=== PATIENT | male | born 1955 | race Caucasian/White ===

== ENCOUNTER 2019-01-24 06:05 | Observation (INO) | payer BC ==
--- NOTE | 2019-01-23 11:39 | PDHPUP ---
History & Physical Update H&P update statement: This history and physical update is based on an assessment of the patient which was completed after admission or registration (within 24 hours), but prior to the surgery/procedure. H&P update: H&P reviewed & patient examined, no change in patient's condition since H&P completed
--- NOTE | 2019-01-24 05:57 | PDANEPAE ---
ANE History of Present Illness Thyroglossal cyst excision. ANE Past Medical History - Cardiovascular History Hx Hypertension: Yes Hx Arrhythmias: No Hx Chest Pain: No Hx Coronary Artery / Peripheral Vascular Disease: No Hx CHF / Valvular Disease: No Hx Palpitations: No - Pulmonary History Hx COPD: No Hx Asthma/Reactive Airway Disease: No Hx Recent Upper Respiratory Infection: No Hx Oxygen in Use at Home: No Hx Sleep Apnea: No Sleep Apnea Screening Result - Last Documented: Negative Pulmonary History Comment: CHILDHOOD ASTHMA - Neurologic History Hx Cerebrovascular Accident: No Hx Seizures: No Hx Dementia: No Neurologic History Comment: OCCAS OCULAR MIGRAINES - Endocrine History Hx Diabetes: No Hypothyroid: No Hyperthyroid: No Obesity: moderate Endocrine History Comment: DM II. LAST A1C 6.8 - Renal History Hx Renal Disorders: No - Liver History Hx Hepatic Disorders: No - Neurological & Psychiatric Hx Hx Neurological and Psychiatric Disorders: No - Cancer History Hx Cancer: No - Congenital Disorder History Hx Congenital Disorders: No - GI History GERD: no Hx Gastrointestinal Disorders: No - Other Health History Other Health History: NEG - Chronic Pain History Chronic Pain: Yes (SHOULDER PAIN AT NIGHT) - Surgical History Prior Surgeries: FINGER FX R HAND. CHATO TKA. CHATO SCOPES. L CARLOS. CHATO SHOULDER SPURS ANE Review of Systems Review of Systems: - Exercise capacity METS (RN): 5 METS ANE Patient History - Allergies Allergies/Adverse Reactions: mosquito spray Allergy (Uncoded 01/24/19 07:55) Rash - Home Medications Home Medications: Acetamn/Diphenhydramine 500/25 [Tylenol PM (*)] 1 each PO HS PRN 01/02/19 [Last Taken 11/22/18] Ascorbic Acid [Vitamin C 500 mg (*)] 500 mg PO DAILY 01/02/19 [Last Taken ] Cholecalciferol Vit D3 [Vitamin D3 (*)] 1,000 units PO DAILY 01/02/19 [Last Taken 01/14/19] Herbals/Supplements -Info Only 1 ea PO DAILY 01/02/19 [Last Taken 01/14/19] Lisinopril [Zestril 20 mg (*)] 20 mg PO DAILY 01/02/19 [Last Taken 01/24/19 04: 30] metFORMIN HCL [Glucophage 1000 mg] 1,000 mg PO BIDMEAL 01/02/19 [Last Taken 02/ 27/19 12:00] - Anes Hx Anes Hx: slow to awaken from anesthesia - Smoking Hx Smoking Status: Former smoker Marijuana use: No - Alcohol Use Alcohol Use: Rarely - Family Anes Hx Family Hx Anesthesia Complications: UNK ANE Labs/Vital Signs - Vital Signs Blood Pressure: 124/77 Heart Rate: 87 O2 Sat (%): 95 Height: 185.42 cm Weight: 119.295 kg ANE Physical Exam - Airway Neck exam: decreased ROM (extension is decreased.) Mallampati Score: Class 1 Mouth exam: dentures (upper) - Pulmonary Pulmonary: clear to auscultation - Cardiovascular Cardiovascular: regular rate and rhythym - ASA Status ASA Status: III ANE Anesthesia Plan Anesthesia Plan: general endotracheal anesthesia
[2019-01-24] MEDS ORDERED: ceFAZolin 2 GM/DEXTROSE 100 ML IV ONE (06:08)
[2019-01-24] MEDS ORDERED: LR 1,000 ML IV ONE (06:09)
[2019-01-24] MEDS ORDERED: LIDOCAINE 1% 2 ML INJ ID PRN (06:09)
[2019-01-24] MEDS ORDERED: LIDO/EPI 1% **Not for Epidural 20 ML MDV ONE (06:54)
[2019-01-24] MEDS ORDERED: MIDAZOLAM 2 MG/2 ML VIAL IVP ONE (07:07)
[2019-01-24] MEDS ORDERED: ROCURONIUM 50 MG/5 ML VIAL ONE (07:08)
[2019-01-24] MEDS ORDERED: REMIFENTANIL HCL 1 MG VIAL ONE ×2 (07:08→08:45)
[2019-01-24] MEDS ORDERED: PROPOFOL/EMULSION 500 MG/50 ML BOTTLE IV ONE ×2 (07:08→08:48)
[2019-01-24] MEDS ORDERED: MIDAZOLAM 2 MG/2 ML VIAL ONE (07:09)
[2019-01-24] MEDS ORDERED: DEXAMETHASONE 4 MG/ML VIAL ONE ×2 (07:09→07:10)
[2019-01-24] MEDS ORDERED: PHENYLEPHRINE 10 MG/ML SDV ONE (07:14)
[2019-01-24] MEDS ORDERED: ePHEDrine SULFATE 25 MG/5 ML SYR ONE (07:51)
[2019-01-24] MEDS ORDERED: fentaNYL 100 MCG/2 ML INJ ONE ×2 (09:25→10:39)
[2019-01-24] MEDS ORDERED: GLYCOPYRROLATE 0.2 MG/1 ML VIAL ONE (09:32)
[2019-01-24] MEDS ORDERED: NEOSTIGMINE METHYLSULFATE 5 MG/5 ML SYR ONE (09:32)
[2019-01-24] MEDS ORDERED: NALOXONE HCL 0.4 MG/ML INJ IVP PRN (09:51)
[2019-01-24] MEDS ORDERED: ONDANSETRON 4 MG/2 ML VIAL IVP PRN (09:51)
[2019-01-24] MEDS ORDERED: ACETAMINOPHEN 325 MG TAB PO PRN (10:02)
[2019-01-24] MEDS: fentaNYL 100 MCG/2 ML INJ IVP PRN ×2 (10:40→11:33)
--- NOTE | 2019-01-24 10:51 | POSTANESTH ---
Post Anesthetic Evaluation Cardiovascular Status: Similar to Pre-Op Cond Respiratory Status: Normal, Stable Level of Consciousness/Mental Status: Can Participate in Eval Pain Control: Adequate, Prn Tx Ordered Nausea/Vomiting Control: Adequate, Prn Tx Ordered Complications Possibly Related to Anesthesia: None Noted
--- NOTE | 2019-01-24 11:11 | GOP ---
[f rep st] OPERATIVE REPORT DATE OF OPERATION: 01/24/2019 SURGEON: Zeus Velasco MD NEUROSURGEON: Zeus Velasco MD. HANDS HANGER: Vincenzo Villegas PA-C. ANESTHESIA: General. PREOPERATIVE DIAGNOSIS: Thyroglossal duct cyst. POSTOPERATIVE DIAGNOSIS: Thyroglossal duct cyst. PROCEDURE PERFORMED: Excision of thyroglossal duct cyst (Will procedure). FINDINGS: A 6 cm thyroglossal duct cyst with a large 3 cm extension into the pre-epiglottic space, e xcised nicely as above. SPECIMENS: Thyroglossal duct cyst, as above. ESTIMATED BLOOD LOSS: 25 mL. DESCRIPTION OF PROCEDURE: The patient's neck was marked in the preoperative holding area. He had a 6 cm cystic mass just left of the midline in the neck. He was orally endotracheally intubated. We i njected the skin in a relaxed skin tension crease over the cyst. He was sterilely prepped and draped . We came down sharply with a 15 blade scalpel through the skin and platysma. Subplatysmal flaps we re elevated. We dissected the strap muscles away from the cyst. It was a very large cyst. The stra p muscles were fairly adherent to it on the left side. We were able to get around the cyst laterally nicely. We traced it superiorly up toward the hyoid bone and took the sternohyoid muscle away from the cyst. We came down low and identified the thyroid ala and dissected above the thyrohyoid membran e. He did have a fairly large pre-epiglottic extension. We had noted this preoperatively on his jordan ging. We dissected the large portion of this out of the pre-epiglottic space off the thyrohyoid memb will without entering the airway. We traced this superiorly up to the hyoid bone. The midportion of the hyoid bone was skeletonized. We then came across the hyoid bone sharply with heavy bone-cutting scissors. We took a centimeter portion away in the midportion of the hyoid with the cyst going unde r it. We then tracked the cyst up toward the tongue base. It did not enter the tongue base and the cyst and hyoid bone were removed and sent to pathology for permanent section analysis. The wound was copiously irrigated and suctioned. Hemostasis was achieved with bipolar cautery. A Mcgrath drain w as placed deep to the strap muscles up toward the tongue base and the strap muscles were reapproximat ed. I also placed a Kevin deep to the platysma above the strap layer. Both drains were sewn into position with 3-0 nylon. The platysma was reapproximated with 3-0 chromic. The skin was closed with 5-0 nylon. A pressure dressing was applied. He tolerated the procedure well, was in good condition at the end of the procedure. /[id number]/MODL
[2019-01-24] MEDS: OXYCODONE/APAP 5/325 TAB PO PRN ×5 (13:08→23:21)
[2019-01-24] MEDS: NS 1,000 ML IV SCH (15:41)
--- NOTE | 2019-01-24 17:00 | SOAPPROG ---
SOAP Progress Note Assessment/Plan: Assessment: S/p thyroglossal duct cyst. Doing well. No nausea/vomiting. Tolerating PO food/ drink. Will do dexamethasone 8mg q 8h x 2 doses for swelling. Plan: Will d/c in the morning if continues to do well. 01/24/19 16:55 01/24/19 17:06 Subjective: Pt reports the he feels like he is doing well overall. He reports no n/v. Eating and drinking fine. Has some pain with swallowing but tolerating food and liquids. No hoarseness. Objective: Vital Signs Temp Pulse Resp BP Pulse Ox 36.3 C 106 H 16 124/74 H 92 01/24/19 15:16 01/24/19 15:16 01/24/19 15:16 01/24/19 15:16 01/24/19 15:16 01/23/19 01/24/19 01/25/19 05:59 05:59 05:59 Intake Total 920 Output Total 425 Balance 495 Pt sitting comfortably in chair. Eating and drinking currently. Good movement of tongue and shrugging w/o difficulty. Dressing is clean and dry around neck. - Pending Discharge Pending Discharge Within 24 Hours: Yes Pending Discharge Date: 01/25/19 Pending Discharge Time: 11:00 ICD10 Worksheet Patient Problems: Problems Problem Status Onset Thyroglossal duct cyst Acute - ICD10 Problem Qualifiers (1) Thyroglossal duct cyst
[2019-01-24] MEDS: DEXAMETHASONE 4 MG/ML VIAL IVP SCH (17:53)
[2019-01-25] MEDS: DEXAMETHASONE 4 MG/ML VIAL IVP SCH ×2 (00:43→08:16)
[2019-01-25] MEDS: CEPACOL LOZENGE PO PRN ×3 (02:54→10:46)
[2019-01-25 04:44] VITALS: BP 127/76
[2019-01-25] MEDS: NS 1,000 ML IV SCH (04:51)
[2019-01-25] MEDS: OXYCODONE/APAP 5/325 TAB PO PRN ×2 (05:47→09:42)
--- NOTE | 2019-01-25 10:26 | PDDCSUM ---
Discharge Summary Discharge Summary: S: Pt examined with Dr Velasco. Pt doing well s/p thyroglossal duct cyst removal. Tolerating PO food/liquid. Pain controlled. Reports voice is strong O: Pt resting comfortably in chair, eating. Neck dressing changed. Kevin drains x2 in place. Incision is C/d/i. No hoarseness. Good symmetric tongue mvmt. Good shoulder shrug. A/P: S/p thyroglossal duct cyst removal. Doing well overall. Had some high BG readings overnight, suspect from decadron, as is BG is usually well controlled with PO meds. Will d/c decadron. Pt will continue to monitor BG on d/c. Plan to go home today. Pt given scripts for percocet #30 and cefdinir x 7d. Will see back in office on monday for drain removal.
--- NOTE | 2019-01-25 10:29 | SOAPPROG ---
SOAP Progress Note Assessment/Plan: Assessment: A: S/p thyroglossal duct cyst removal. Doing well overall. Had some high BG readings overnight, suspect from decadron, as is BG is usually well controlled with PO meds. Will d/c decadron. Pt will continue to monitor BG on d/c. Plan to go home today. Pt given scripts for percocet #30 and cefdinir x 7d. Will see back in office on monday for drain removal. Plan: Will d/c today 01/24/19 16:55 01/24/19 17:06 01/25/19 10:27 Subjective: S: Pt examined with Dr Velasco. Pt doing well s/p thyroglossal duct cyst removal. Tolerating PO food/liquid. Pain controlled. Reports voice is strong Objective: Vital Signs Temp Pulse Resp BP Pulse Ox 36.6 C 89 16 127/76 H 94 01/25/19 07:56 01/25/19 07:56 01/25/19 07:56 01/25/19 07:56 01/25/19 07:56 01/24/19 01/25/19 01/26/19 05:59 05:59 05:59 Intake Total 1170 550 Output Total 425 Balance 745 550 S: O: Pt resting comfortably in chair, eating. Neck dressing changed. Kevin drains x2 in place. Incision is C/d/i. No hoarseness. Good symmetric tongue mvmt. Good shoulder shrug. - Pending Discharge Pending Discharge Within 24 Hours: Yes Pending Discharge Date: 01/26/19 Pending Discharge Time: 11:00 ICD10 Worksheet Patient Problems: Problems Problem Status Onset Thyroglossal duct cyst Acute - ICD10 Problem Qualifiers (1) Thyroglossal duct cyst
== END 2019-01-25 11:19 | disposition home or self-care (01) ==
LOC: F3E 06:05
PROVIDERS: ADMIT Otolaryngology; ATTEND Otolaryngology
PROC: 0JB40ZZ Excision of Right Neck Subcutaneous Tissue and Fascia, Open Approach (ICD-10-PCS; principal; 2019-01-24 07:15)
DX: Q89.2 Congenital malformations of other endocrine glands (principal); I10 Essential (primary) hypertension; Z87.891 Personal history of nicotine dependence; E11.65 Type 2 diabetes mellitus with hyperglycemia; T38.0X5A Adverse effect of glucocorticoids and synthetic analogues, initial encounter
CPT/HCPCS: 60280; G0378; J0690; J1100; J2250; J2370; J2704; J2710; J3010